=== PATIENT | female | born 1950 | race Caucasian/White ===

== ENCOUNTER → 2023-12-12 10:00 | Outpatient (REF) | payer OTHER, SELFPAY | LOC: HWRAD 10:00 | PROVIDERS: ATTENDING PHYSICIAN Physician Assistant Medical | DX: M85.80 Other specified disorders of bone density and structure, unspecified site (principal); Z12.31 Encounter for screening mammogram for malignant neoplasm of breast | CPT/HCPCS: 77063; 77067; 77080 ==

== ENCOUNTER 2024-03-17 14:05 | Emergency (ER) | payer OTHER, SELFPAY ==
[2024-03-17 14:16] VITALS: BP 120/76
[2024-03-17 14:22] VITALS: BMI 30.8
--- NOTE | 2024-03-17 14:25 | ED.GENMED ---
History of Present Illness
General
Chief Complaint: Heart Rate Problem
Source: patient
Exam Limitations: none
Time Seen by Provider: 03/17/24 14:15
Nursing documentation reviewed up to this point in time: agreed with
History of Present Illness
History of Present Illness:
73-year-old female presents emergency department due to tachycardia. She felt her heart rate going fast about 30 minutes ago. She has had this before.
Past History
Past History
ED Past Medical History: Arrthythmia
ED Past Surgical History: Negative Cardiac
Patient has exhibited threatening behavior?: No
PSI?: No
Social History
Tobacco: Smoker
Alcohol: Occasional
Drug: None
Personal:
Living: with family
Employment: Employed
Family History
Family History: CAD
Review of Systems
Review of Systems
Allergies reviewed?: Yes
All Other Systems: Not applicable
Constitutional: Reports no symptoms
EENT: Reports no symptoms
Respiratory: Reports no symptoms
Cardiac: Reports palpitations
ABD/GI: Reports no symptoms
: Reports no symptoms
Musculoskeletal: Reports no symptoms
Skin: Reports no symptoms
Neurological: Reports no symptoms
Endocrine: Reports no symptoms
Hematologic/Lymphatic: Reports no symptoms
Psychiatric: Reports no symptoms
Phy Exam
Physical Exam
Physical Exam:
Physical Exam
General: no apparent distress, not acutely ill
Neck: supple. no meningeal signs. normal posterior pharynx
Heart: s1/s2 tachycardia, no murmur. equal radial
pulses.
HEENT: Pupils equal round reactive to light, EOMI
Lungs: no acute respiratory distress. clear bilaterally
Abdomen: normal bowel sounds. not tender. no CVAT
Neuro: alert and oriented. no focal neurological deficits
Skin: no rash
Psychiatric: well kept. interactive and cooperative
Extremities: no edema. no calf tenderness. negative homans. good distal pulses
Course
Orders/Labs/Results
Orders:
Orders
03/17/24 14:07
Electrocardiogram (*1) Urgent
Reason for Study: Tachycardia
EKG- Treatment ONCE
03/17/24 14:14
Adenosine [Adenocard] 18 mg .ROUTE .STK-MED ONE
03/17/24 14:21
Electrocardiogram (*1) Urgent
Reason for Study: Tachycardia
EKG- Treatment ONCE
03/17/24 14:24
Complete Blood Count/With Diff Urgent
Comprehensive Metabolic Panel Urgent
TSH Reflex To Free T4 Urgent
Abnormal Lab Results
03/17/24
14:24
BUN 20 H mg/dl
(7-17)
Glucose 148 H mg/dl
(70-99)
03/17/24 14:24
03/17/24 14:24
Vital Signs
Initial and Last Documented VS:
Initial Vital Signs
Pulse Resp BP
199 19 120/76
03/17/24 14:16 03/17/24 14:16 03/17/24 14:16
Last Documented Vital Signs
Pulse Resp BP Pulse Ox
107 13 120/76 93
03/17/24 14:22 03/17/24 14:22 03/17/24 14:16 03/17/24 14:22
MDM/Problems Addressed
Differential Diagnosis Includes:
rapid atrial fibrillation, SVT
MDM/Problems Addressed:
73 yo female with rapid svt, converted with adenosine. Stable for d/c. F/u with cardiology.
Chronic conditions affecting care: Arrhythmia
Acute Exacerbation and/or Progression of Chronic Illness: Arrhythmia
*Pulse Oximetry
Patient hypoxic: no
*EKG
Interpreted by ED Provider?: Yes
EKG Intrepretation Date: 03/17/24
EKG Intrepretation Time: 14:11
Interpretation: abnormal
Comparison EKG: changes noted
Heart Rate: 198
Rate: tachycardiac
Rhythm: SVT
[place]: normal axis
Interval: normal interval
QRS Pattern: normal QRS
Ischemia: non-specific ST changes
*Sueding Machine Tender Interpretation
Rate: tachycardiac
Heart Rate: 200
Rhythm: SVT
*Critical Care Note
Total Time (30-74mins, 75-104mins- exclusive of procedures): 30
comment:
Critical care statement: A total of 30 minutes of critical care time was provided for this patient. This includes management of unstable vital signs, evaluation of the patient at bedside, reviewing the patient's pertinent medical records, discussion
with consultants, review of old EKGs and review of pertinent medical records. This time with separate from time utilized to perform the aforementioned documented procedures
Patient Management
Social determinants of health affecting care: Living situation and Substance abuse (Nicotine)
Escalation/DeEscalation of care consider admission/obs:
Admit not indicated
ED Attending Note
-
Portions of this chart may have been created with voice recognition software.� Occasional wrong word or��sound alike� substitutions may have occurred due to the inherent limitations of voice recognition software.
Discharge Plan
Departure
Patient Disposition: Home (Routine Discharge)
Date of Disposition: 03/17/24
Time of Disposition: 15:15
Patient with high blood pressure during this ER visit?: No
Condition: Good
Discharge Problem:
Supraventricular tachycardia
Instructions: Supraventricular tachycardia (SVT)
Prescriptions:
No Action
omeprazole 20 MG capsule,delayed release(DR/EC)
20 mg PO DAILY
Statin
20 mg PO DAILY
cephalexin 500 mg capsule
500 mg PO QID Qty: 28 0RF
Referrals:
Heather Dumas PA [Family Provider] -
Yadira Rodriguez MD [Active] - Call in 1-3 days for appt
Interventions
Interventions:
*Risk Screen - Suicide Last Done: 03/17/24 14:23
*Neglect/Abuse Screening Last Done: 03/17/24 14:23
ED- Fall Risk Assessment Last Done: 03/17/24 14:15
*ED COVID-19 Vaccine History Last Done: 03/17/24 14:23
ED- Cardiac Assessment Last Done: 03/17/24 14:15
ED- Pulmonary Assessment Last Done: 03/17/24 14:15
Discharge Date and Time
Print Language: GRENADIAN
[2024-03-17] MEDS: ADENOCARD 6 MG IV (14:30)
[2024-03-17 14:38] LABS: % Basophils 0.8 % (0-2); % Eosinophils 2.4 % (0-6); % Monocytes 5.5 % (1.7-9.3); % Neutrophils 44.3 % (42.2-75.2); Absolute Basophils 0.1 10^3/uL (0-0.2); Absolute Eosinophils 0.2 10^3/uL (0-0.7); Absolute Lymphocytes 3.4 10^3/uL (1.2-3.4); Absolute Monocytes 0.4 10^3/uL (0.1-0.6); Absolute Neutrophils 3.2 10^3/uL (1.4-6.5); Mean Corp Hgb Conc. 33.3 g/dL (33.0-37.0); Mean Corpuscular Hgb 30.8 pg (27.0-31.0); Mean Corpuscular Volume 92.4 fL (81.0-99.0); Mean Platelet Volume 9.5 fL (7.4-10.4); Nucleated Red Blood Cells % 0 %; Platelet Count 167 10^3/uL (130-400); Red Blood Cell Count 4.22 10^6/uL (4.20-5.40); Red Cell Dist. Width 13.4 % (11.5-14.5); White Blood Cell Count 7.2 10^3/uL (4.8-10.8)
[2024-03-17 14:50] LABS: ALT (SGPT) 24 U/L (0-35); AST (SGOT) 29 U/L (14-36); Albumin 4.4 g/dl (3.5-5.0); Alkaline Phosphatase 107 U/L (38-126); Blood Urea Nitrogen 20 mg/dl (7-17); Calcium 9.2 mg/dl (8.4-10.2); Carbon Dioxide 26 mmol/L (22-30); Chloride 106 mmol/L (98-107); Estimated Creatinine Clearance 67 ml/min; Glucose 148 mg/dl (70-99); Potassium 3.7 mmol/L (3.5-5.1); Sodium 142 mmol/L (135-145); Total Bilirubin 0.6 mg/dl (0.2-1.3); Total Protein 6.7 g/dl (6.3-8.2); eGFR > 60.00
[2024-03-17 15:00] VITALS: BP 106/71
== END 2024-03-17 15:39 | disposition home or self-care (01) ==
LOC: EMR 14:05
PROVIDERS: EMERGENCY PHYSICIAN Emergency Medicine; FAMILY PHYSICIAN Physician Assistant Medical
DX: I47.10 Supraventricular tachycardia, unspecified (principal); F17.200 Nicotine dependence, unspecified, uncomplicated; Z82.49 Family history of ischemic heart disease and other diseases of the circulatory system
CPT/HCPCS: 99283; 96374; 80053; 84443; 85025; 93005; J0153

== ENCOUNTER 2024-03-29 10:43 | Emergency (ER) | payer OTHER, SELFPAY ==
[2024-03-29 10:44] VITALS: BP 132/95
[2024-03-29 10:59] VITALS: BP 139/102
[2024-03-29 11:00] VITALS: BP 128/100
--- NOTE | 2024-03-29 11:00 | ED.GENMED ---
History of Present Illness
General
Chief Complaint: Heart Rate Problem
Time Seen by Provider: 03/29/24 10:59
History of Present Illness
History of Present Illness:
TIME OF INITIAL ENCOUNTER: 11 AM
HPI: The patient presents with recurrence of palpitations. She was seen here about 1 week ago and was found to be in SVT. She responded to 6 mg of adenosine at that time. She also has a history of SVT in the past and was successfully treated with
verapamil. She had a long period of time when she did not have an SVT episode while on verapamil and then the verapamil was stopped. Last week was the first time she had SVT in a long time but has been off the verapamil.
EXAM:
GENERAL: Well appearing in no distress
HEENT: Moist oral mucosa
CARDIOVASCULAR: No murmurs, tachycardic heart rate, regular rhythm, No chest wall tenderness
PULMONARY: No respiratory distress, breath sounds are clear and equal
ABDOMEN: Soft with no peritoneal signs, no tenderness
NEUROLOGIC: Excellent strength all extremities, no coordination deficits
PSYCHIATRIC: Appropriate mental status, normal insight and judgement, appears somewhat
EXTREMITIES: Nontender, no edema, moves all extremities equally
SKIN: No rash, no lesions
NUMBER AND COMPLEXITY OF PROBLEMS ADDRESSED AT THE ENCOUNTER
� Chronic conditions affecting care: Is a smoker, has had SVT
� Acute Exacerbation and/or Progression of Chronic Illness: This is an acute but recurring problem
� Differential Diagnosis includes: Recurrence of SVT, anxiety very unlikely, atrial tachycardia, atrial flutter, other atrial dysrhythmia
AMOUNT AND/OR COMPLEXITY OF DATA TO BE REVIEWED AND ANALYZED
� I performed an independent evaluation of and my interpretation is:
EKG: Initial EKG: SVT rate of 188 repeat EKG shows a sinus rhythm with a rate of 92, normal axis, [address]:
X-rays:
Laboratory Studies: I reviewed the records from just over 1 week ago when she had a very similar episode and at that time she had a normal CBC, unremarkable chemistries and TSH was normal
Other:
� Review of other/old records: See above
� Clinical information was obtained by an independent historian: None needed but I also spoke to the at bedside
� Prescriptions/Medications Considered but not given:
� Further testing considered but not performed:
RISK OF COMPLICATIONS AND/OR MORBIDITY OR MORTALITY OF PATIENT MANAGEMENT
� Social determinants of health affecting care: Lives at home
� Discussion with other providers:
� Escalation of care including admission/observation vs risk of discharge considered: As patient has recurrence of SVT, will resume verapamil as she tolerated this very well and was very successful with taking this in the past.
She thinks she saw Dr. Ibrahim in the past. Will follow-up with cardiology as an outpatient.
ANY OTHER UPDATES:
11:30 AM: After adenosine was given, the patient has no further symptoms and remains in sinus rhythm, very well-appearing
Past History
Past History
ED Past Medical History: Arrthythmia
ED Past Surgical History: Negative Cardiac
Patient has exhibited threatening behavior?: No
PSI?: No
Social History
Tobacco: Smoker
Alcohol: Occasional
Drug: None
Personal:
Living: with family
Employment: Employed
Family History
Family History: CAD
Phy Exam
Physical Exam
Physical Exam:
See HPI
Course
Orders/Labs/Results
Orders:
Orders
03/29/24 10:44
ECG [Electrocardiogram (*1)] Urgent
Reason for Study: Abnormal EKG
EKG- Treatment ONCE
03/29/24 10:57
Adenosine [Adenocard] 6 mg .ROUTE .STK-MED ONE
03/29/24 11:01
Adenosine [Adenocard] 6 mg IV NOW STA
03/29/24 11:04
Adenosine [Adenocard] 12 mg .ROUTE .STK-MED ONE
03/29/24 11:07
EKG [Electrocardiogram (*1)] Urgent
Reason for Study: Tachycardia
EKG- Treatment ONCE
03/29/24 11:08
Adenosine [Adenocard] 12 mg IV NOW STA
03/29/24 11:10
Verapamil Extended Release [[place] Extended Release] 120 mg PO NOW STA
03/29/24 11:14
Verapamil Extended Release [[place] Extended Release] 120 mg PO NOW STA
Vital Signs
Initial and Last Documented VS:
Initial Vital Signs
Temp Pulse Resp BP Pulse Ox
98.4 F 202 18 132/95 96
03/29/24 10:44 03/29/24 10:44 03/29/24 10:44 03/29/24 10:44 03/29/24 10:44
Last Documented Vital Signs
Temp Pulse Resp BP Pulse Ox
98.4 F 89 15 128/100 96
03/29/24 10:44 03/29/24 11:30 03/29/24 11:30 03/29/24 11:22 03/29/24 11:30
*Critical Care Note
Total Time (30-74mins, 75-104mins- exclusive of procedures): 32min
comment:
The patient was seen immediately upon arrival and was found to have heart rates near 190. She was placed on the monitor and vital signs were very closely monitored. We gave adenosine 6 mg and then an additional 12 mg and then she successfully
converted. She was watched further and was placed back on verapamil. Overall markedly improved.
ED Attending Note
-
Portions of this chart may have been created with voice recognition software.� Occasional wrong word or��sound alike� substitutions may have occurred due to the inherent limitations of voice recognition software.
Discharge Plan
Departure
Patient Disposition: Home (Routine Discharge)
Date of Disposition: 03/29/24
Time of Disposition: 11:28
Patient with high blood pressure during this ER visit?: Yes
Discharge Problem:
SVT (supraventricular tachycardia)
Prescriptions:
New
verapamil 120 mg tablet extended release
120 mg PO DAILY Qty: 30 0RF
No Action
omeprazole 20 MG capsule,delayed release(DR/EC)
20 mg PO DAILY
Statin
20 mg PO DAILY
cephalexin 500 mg capsule
500 mg PO QID Qty: 28 0RF
Referrals:
Heather Dumas PA [Family Provider] -
Sharon Ibrahim DO [Active] - Follow up in 2-3 days
Activity Restrictions/Additional Instructions:
I reviewed your blood work from the last time you were here and it was unremarkable. EKG confirms that you are in SVT and after 6 mg then 12 mg of adenosine, you converted to a normal sinus rhythm. We have placed you back on verapamil; follow up
with Dr. Ibrahim. Return here if worse or any other concerns.
Interventions
Interventions:
*Risk Screen - Suicide Last Done: 03/29/24 10:44
*General Assessment Last Done: 03/29/24 10:44
*Neglect/Abuse Screening Last Done: 03/29/24 10:44
ED- Fall Risk Assessment Last Done: 03/29/24 11:17
ED- Cardiac Assessment Last Done: 03/29/24 11:17
ED- Pulmonary Assessment Last Done: 03/29/24 11:17
Discharge Date and Time
Print Language: MALTESE
[2024-03-29] MEDS: ADENOCARD 6 MG IV (11:02)
[2024-03-29] MEDS: ADENOCARD 12 MG IV (11:05)
[2024-03-29 11:17] VITALS: BMI 28.3
[2024-03-29] MEDS: CALAN EXTENDED RELEASE 120 MG PO (11:22)
[2024-03-29 11:38] VITALS: BP 111/66
== END 2024-03-29 11:39 | disposition home or self-care (01) ==
LOC: EMR 10:43
PROVIDERS: EMERGENCY PHYSICIAN Emergency Medicine; FAMILY PHYSICIAN Physician Assistant Medical
DX: I47.10 Supraventricular tachycardia, unspecified (principal); F17.200 Nicotine dependence, unspecified, uncomplicated; Z82.49 Family history of ischemic heart disease and other diseases of the circulatory system; Z86.79 Personal history of other diseases of the circulatory system
CPT/HCPCS: 99283; 96374; 96376; 93005; J0153

== ENCOUNTER 2024-06-05 12:19 | Emergency (ER) | payer OTHER, SELFPAY ==
[2024-06-05 12:26] VITALS: BP 125/81
[2024-06-05 12:42] VITALS: BMI 30.3
[2024-06-05 12:45] LABS: % Basophils 0.7 % (0-2); % Eosinophils 2.4 % (0-6); % Immature Granulocytes 0.5 % (0-0.5); % Lymphocytes 39.3 % (20.5-51.1); % Monocytes 4.9 % (1.7-9.3); % Neutrophils 52.2 % (42.2-75.2); Absolute Basophils 0.1 10^3/uL (0-0.2); Absolute Eosinophils 0.2 10^3/uL (0-0.7); Absolute Lymphocytes 2.9 10^3/uL (1.2-3.4); Absolute Monocytes 0.4 10^3/uL (0.1-0.6); Absolute Neutrophils 3.8 10^3/uL (1.4-6.5); Hemoglobin 13.2 g/dL (12.0-16.0); Mean Corpuscular Hgb 31.2 pg (27.0-31.0); Mean Corpuscular Volume 94.6 fL (81.0-99.0); Mean Platelet Volume 9.6 fL (7.4-10.4); Nucleated Red Blood Cells % 0 %; Platelet Count 160 10^3/uL (130-400); Red Blood Cell Count 4.23 10^6/uL (4.20-5.40); Red Cell Dist. Width 13.2 % (11.5-14.5); White Blood Cell Count 7.4 10^3/uL (4.8-10.8)
[2024-06-05 12:48] VITALS: BP 129/82
--- NOTE | 2024-06-05 12:55 | ED.GENMED ---
History of Present Illness
<Komal Pagan PA-C - Last Filed: 06/05/24 14:08>
General
Chief Complaint: Heart Rate Problem
Source: patient
Exam Limitations: none
Time Seen by Provider: 06/05/24 12:42
History of Present Illness
History of Present Illness:
74 y/o F with h/o SVT on verapamil followed by dr. romero
has had a few episodes remotely and then a few more recently since march
compliant with verapamil
previously converted with adenosine
here today after developing lightheadedness and aplpitations about 1 sco[employer] [facility] while drinking a smoothie
she has had some alcohol over the past few days but nothing today
she felt lightheaded and chest tightness but no pain
she did not pass out
she went home initially but then decided to come in when it didn' break
she now feels ok, just emotional. she converted spointaneously while in the ED treatment bed.
Past History
<BERNY Jones Last Filed: 06/05/24 14:08>
Past History
ED Past Medical History: Arrthythmia
ED Past Surgical History: Negative Cardiac
Patient has exhibited threatening behavior?: No
PSI?: No
Social History
Tobacco: Smoker
Alcohol: Occasional
Drug: None
Personal:
Living: with family
Employment: Employed
Family History
Family History: CAD
Review of Systems
<BERNY Jones Last Filed: 06/05/24 14:08>
Review of Systems
Allergies reviewed?: Yes
All Other Systems: Not applicable
Phy Exam
<BERNY Jones Last Filed: 06/05/24 14:08>
Physical Exam
Physical Exam:
GENERAL: Alert , in no apparent distress
EYE: pupils equal and reactive
NECK: Supple
ENT: o/p clr, mmm.
CARDIAC: regular, no edema, no murmur
LUNGS: Clear breath sounds bilaterally, no acute respiratory distress, no wheezes/rales/rhonchi
ABDOMEN: Soft, without focal tenderness, no r/g, no cvat, normal bowel sounds
NEUROLOGICAL: Alert and oriented, no focal neuro deficits
SKIN: Warm and dry, skin intact.
MUSCULOSKELETAL: No edema, well perfused. neg shamar's sign
PSYCH: Normal and appropriate interaction. mildly anxious
Course
<Komal Pagan PA-C - Last Filed: 06/05/24 14:08>
Orders/Labs/Results
Orders:
Orders
06/05/24 12:21
Electrocardiogram (*1) Urgent
Reason for Study: Palpitations
EKG- Treatment ONCE
06/05/24 12:37
Complete Blood Count/With Diff Urgent
Comprehensive Metabolic Panel Urgent
Magnesium Urgent
TSH Reflex To Free T4 Urgent
06/05/24 12:44
Electrocardiogram (*1) Urgent
Reason for Study: Abnormal EKG
EKG- Treatment ONCE
06/05/24 12:53
Add On- LAB Urgent
Tests Added?: magnesium, TSH
Abnormal Lab Results
06/05/24
12:37
MCH 31.2 H pg
(27.0-31.0)
Glucose 158 H mg/dl
(70-99)
06/05/24 12:37
06/05/24 12:37
Vital Signs
Initial and Last Documented VS:
Initial Vital Signs
Temp Pulse Resp BP Pulse Ox
36.8 C 183 18 125/81 98
06/05/24 12:26 06/05/24 12:26 06/05/24 12:26 06/05/24 12:26 06/05/24 12:26
Last Documented Vital Signs
Temp Pulse Resp BP Pulse Ox
36.8 C 85 14 124/73 97
06/05/24 12:26 06/05/24 13:15 06/05/24 13:15 06/05/24 13:00 06/05/24 13:15
<Frankie Almnote MD - Last Filed: 06/05/24 13:14>
Orders/Labs/Results
Orders:
Orders
06/05/24 12:21
Electrocardiogram (*1) Urgent
Reason for Study: Palpitations
EKG- Treatment ONCE
06/05/24 12:37
Complete Blood Count/With Diff Urgent
Comprehensive Metabolic Panel Urgent
Magnesium Urgent
TSH Reflex To Free T4 Urgent
06/05/24 12:44
Electrocardiogram (*1) Urgent
Reason for Study: Abnormal EKG
EKG- Treatment ONCE
06/05/24 12:53
Add On- LAB Urgent
Tests Added?: magnesium, TSH
Abnormal Lab Results
06/05/24
12:37
MCH 31.2 H pg
(27.0-31.0)
Glucose 158 H mg/dl
(70-99)
06/05/24 12:37
06/05/24 12:37
Vital Signs
Initial and Last Documented VS:
Initial Vital Signs
Temp Pulse Resp BP Pulse Ox
36.8 C 183 18 125/81 98
06/05/24 12:26 06/05/24 12:26 06/05/24 12:26 06/05/24 12:26 06/05/24 12:26
Last Documented Vital Signs
Temp Pulse Resp BP Pulse Ox
36.8 C 85 14 124/73 97
06/05/24 12:26 06/05/24 13:15 06/05/24 13:15 06/05/24 13:00 06/05/24 13:15
<Komal Pagan PA-C - Last Filed: 06/05/24 14:08>
MDM/Problems Addressed
Differential Diagnosis Includes:
svt, anxiety, sinus tach
MDM/Problems Addressed:
74 y/o F
h/o svt
here with episode of svt while drinking a smoothie
felt lightheaded
symptoms resolved after arrival and now she just is tearful because it scared her
compiant with verapamil
has d/w cards about ablation but not seriously
seen by ed attending
stable bp
will chekc lytes
monitor
anticipate d/c
06/05/2024 1406 PM
pt remains in sinus rhythm
dc home
no electrolye distrubacnes;
ED Attending Note
<Komal Pagan PA-C - Last Filed: 06/05/24 14:08>
-
Portions of this chart may have been created with voice recognition software.� Occasional wrong word or��sound alike� substitutions may have occurred due to the inherent limitations of voice recognition software.
<Frankie Almonte MD - Last Filed: 06/05/24 13:14>
ED Attending Note
Patient seen and examined by attending physician: Yes
I performed the substantive portion of visit, reviewed & personally made and approve the management plan that is documented in note by myself or AMOS.: Yes
ED Attending Note:
74-year-old female went into a rapid heartbeat this morning. History of the same x 2 in the past. Using resolved with adenosine. No chest pain shortness of breath syncope or other complaints. She self resolved upon entering the room of the ER.
Currently asymptomatic
No respiratory distress. Warm and dry. Perfusing well. Grossly nonfocal. Heart regular rate and rhythm. Lungs clear and equal.
EKG is stable.
PSVT. Stable. Cardiology follow-up
Discharge Plan
Departure
Patient Disposition: Home (Routine Discharge)
Date of Disposition: 06/05/24
Time of Disposition: 14:06
Patient with high blood pressure during this ER visit?: No
Condition: Fair
Covid-19: Not Applicable
Discharge Problem:
SVT (supraventricular tachycardia)
Instructions: Supraventricular tachycardia (SVT)
Prescriptions:
No Action
omeprazole 20 MG capsule,delayed release(DR/EC)
20 mg PO DAILY
Statin
20 mg PO DAILY
cephalexin 500 mg capsule
500 mg PO QID Qty: 28 0RF
verapamil 120 mg tablet extended release
120 mg PO DAILY Qty: 30 0RF
Referrals:
Heather Dumas PA [Family Provider] -
Sharon Ibrahim DO [Active] - Follow up in 1 week
Activity Restrictions/Additional Instructions:
YOUR BLOOD WORK WAS REASSURING
YOU SPONTANEOUSLY CONVERTED BACK TO NORMAL RHYTHM ON YOUR OWN
AVOID TRIGGERS FOR SVT
RETURN FOR ANY CONCERNS.
Interventions
Interventions:
*Risk Screen - Suicide Last Done: 06/05/24 12:26
*General Assessment Last Done: 06/05/24 12:26
*Neglect/Abuse Screening Last Done: 06/05/24 12:26
ED- Fall Risk Assessment Last Done: 06/05/24 12:42
*ED COVID-19 Vaccine History Last Done: 06/05/24 12:26
ED- Cardiac Assessment Last Done: 06/05/24 12:42
ED- Pulmonary Assessment Last Done: 06/05/24 12:45
Discharge Date and Time
Print Language: ERITREAN
[2024-06-05 13:00] VITALS: BP 124/73
[2024-06-05 13:29] LABS: ALT (SGPT) 26 U/L (0-35); AST (SGOT) 24 U/L (14-36); Albumin 4.3 g/dl (3.5-5.0); Alkaline Phosphatase 109 U/L (38-126); Blood Urea Nitrogen 16 mg/dl (7-17); Calcium 8.6 mg/dl (8.4-10.2); Carbon Dioxide 24 mmol/L (22-30); Chloride 103 mmol/L (98-107); Estimated Creatinine Clearance 74 ml/min; Glucose 158 mg/dl (70-99); Magnesium 1.7 mg/dl (1.6-2.3); Potassium 3.6 mmol/L (3.5-5.1); Sodium 139 mmol/L (135-145); TSH Reflex To Free T4 2.47 uIU/ml (0.47-4.68); Total Bilirubin 0.5 mg/dl (0.2-1.3); Total Protein 6.5 g/dl (6.3-8.2); eGFR > 60.00
[2024-06-05 14:05] VITALS: BP 104/71
== END 2024-06-05 14:28 | disposition home or self-care (01) ==
LOC: EMR 12:19
PROVIDERS: Physician Assistant; EMERGENCY PHYSICIAN Emergency Medicine; FAMILY PHYSICIAN Physician Assistant Medical
DX: I47.10 Supraventricular tachycardia, unspecified (principal); F17.200 Nicotine dependence, unspecified, uncomplicated; Z79.899 Other long term (current) drug therapy
CPT/HCPCS: 99284; 80053; 83735; 84443; 85025; 93005

== ENCOUNTER → 2024-07-06 13:40 | Outpatient (REF) | payer OTHER, SELFPAY | LOC: HWRCS 13:40 | PROVIDERS: ATTENDING PHYSICIAN Physician Assistant; FAMILY PHYSICIAN Physician Assistant Medical | DX: I47.10 Supraventricular tachycardia, unspecified (principal) | CPT/HCPCS: 93306 ==

== ENCOUNTER → 2024-08-26 08:05 | Outpatient (REF) | payer OTHER, SELFPAY | LOC: HWRCS 08:05 | PROVIDERS: ATTENDING PHYSICIAN Internal Medicine Cardiovascular Disease; FAMILY PHYSICIAN Physician Assistant Medical | DX: I47.10 Supraventricular tachycardia, unspecified (principal); R07.89 Other chest pain | CPT/HCPCS: 78452; 93017; A9500; J2785 ==

== ENCOUNTER → 2024-12-14 10:13 | Outpatient (REF) | payer OTHER, SELFPAY | LOC: HWWDC 10:13 | PROVIDERS: ATTENDING PHYSICIAN Physician Assistant Medical | DX: Z12.31 Encounter for screening mammogram for malignant neoplasm of breast (principal) | CPT/HCPCS: 77063; 77067 ==

== ENCOUNTER 2025-03-04 06:26 | Day surgery (SDC) | payer OTHER, SELFPAY | END 2025-03-04 12:23 | disposition home or self-care (01) | LOC: GI 06:26 | PROVIDERS: ATTENDING PHYSICIAN Internal Medicine Gastroenterology; FAMILY PHYSICIAN Family Medicine | DX: Z12.11 Encounter for screening for malignant neoplasm of colon (principal); K57.30 Diverticulosis of large intestine without perforation or abscess without bleeding; K64.8 Other hemorrhoids; K44.9 Diaphragmatic hernia without obstruction or gangrene; K22.89 Other specified disease of esophagus; K31.89 Other diseases of stomach and duodenum; K21.9 Gastro-esophageal reflux disease without esophagitis; D12.2 Benign neoplasm of ascending colon; D12.3 Benign neoplasm of transverse colon; D12.5 Benign neoplasm of sigmoid colon; K62.1 Rectal polyp; Z86.0100 Personal history of colon polyps, unspecified; Z83.719 Family history of colon polyps, unspecified | CPT/HCPCS: 45385; 45380; 43239; 88305; 88342 ==